=== PATIENT | female | born 1975 | race Two or more races ===

== ENCOUNTER 2019-01-08 21:14 | Inpatient (IN) | payer MEDICAID ==
[~2019-01-08] VITALS: Ht 157.5 cm; Wt 76.2 kg
[2019-01-09 03:15] LABS: Basophils # (auto) 0.1 uL; Basophils % (auto) 0.6 % (0.0-2.0); Eosinophils # (auto) 0.5 uL; Eosinophils % (auto) 4.5 % (0.0-7.0); Hematocrit 40.7 % (36.0-46.0); Hemoglobin 13.7 g/dL (12.2-16.2); Lymphocytes # (auto) 2.9 uL; Lymphocytes % (auto) 28.1 % (10.0-50.0); Mean Corpuscular Hemoglobin 30.4 pg (28.0-32.0); Mean Corpuscular Hgb Conc. 33.8 g/dL (32.0-36.0); Mean Corpuscular Volume 90.1 fL (80.0-100.0); Monocytes # (auto) 0.9 uL; Monocytes % (auto) 9.2 % (0.0-12.0); Neutrophils # (auto) 5.9 uL; Neutrophils % (auto) 57.6 % (37.0-80.0); Nucleated Red Blood Cells % 0.1 %; Platelet Count (auto) 307 10^3/uL (140-450); Red Blood Cells 4.51 10^6/uL (4.0-5.20); Red Cell Distribution Width 13.6 % (11.8-14.3); White Blood Cell 10.3 10^3/uL (4.4-10.8)
[2019-01-09 03:38] LABS: Albumin 3.5 g/dL (3.4-5.0); BUN/Creatinine Ratio 18.1; Potassium 3.5 mmol/L (3.5-5.1)
[2019-01-09 03:41] LABS: Bilirubin, Total 0.8 mg/dL (0.2-1.0); Total Protein 7.9 g/dL (6.4-8.2)
[2019-01-09 04:39] LABS: Urine Amorphous Crystal FEW /hpf (None Seen); Urine Bacteria FEW /hpf (None Seen); Urine Blood Negative /uL (Negative); Urine Specific Gravity 1.012 (1.001-1.035); Urine WBC <1 /hpf (0 - 5)
[2019-01-09] MEDS ORDERED: TAMSULOSIN HYDROCHLORIDE 0.4 MG CAP PO ONE (08:00)
[2019-01-09] MEDS ORDERED: ONDANSETRON HCL 4 MG/2 ML VIAL IV ONE (08:00)
[2019-01-09] MEDS ORDERED: KETOROLAC TROMETH 30 MG/ML 1ML VIAL IV ONE (08:00)
[2019-01-09] MEDS ORDERED: PROMETHAZINE HCL 25 MG/ML 1ML IV PRN (09:30)
[2019-01-09] MEDS ORDERED: traMADol HCL 50 MG TAB PO PRN (09:30)
[2019-01-09] MEDS ORDERED: KETOROLAC TROMETH 30 MG/ML 1ML VIAL IV PRN (09:30)
[2019-01-09] MEDS ORDERED: LORazepam 0.5 MG TAB PO PRN (09:30)
[2019-01-09] MEDS ORDERED: MORPHINE SULFATE 4 MG/ML SYR/VIAL IV PRN (09:30)
[2019-01-09] MEDS ORDERED: TEMAZEPAM 15 MG CAP PO PRN (09:30)
[2019-01-09] MEDS ORDERED: NITROGLYCERIN 0.4 MG SL TAB SL PRN (09:30)
[2019-01-09] MEDS: SODIUM CHLORIDE 0.9% 1,000 ML IV SCH ×2 (09:55→21:08)
[2019-01-09] MEDS: FAMOTIDINE 20 MG TAB PO SCH ×2 (10:25→21:07)
[2019-01-09 14:00] VITALS: BP 128/80
--- NOTE | 2019-01-09 14:00 | NUR ---
Telemetry admit from [facility] admitted to Telemetry unit after SBAR received. Patient oriented to Pilar Ring primary RN, unit, room, bed, and unit policies regarding patient care and visiting hours discussed with patient and daughter. Patient now on continuous telemetry monitoring, tele box #19 and telemetry reading on arrival to unit is SR, HR 93. Safety precautions in place including bed set to lowest position/locked, bedside rails up x2, call light within reach, instructed patient to call for assistance. Patient verbalized understanding. Will continue to monitor q 1hr and PRN.
[2019-01-09] MEDS: ACETAMINOPHEN 500 MG TAB PO PRN ×2 (15:12→21:07)
[2019-01-09] MEDS ORDERED: BENA20TA14 PO (16:38)
[2019-01-09] MEDS ORDERED: ATOR20TA PO (16:38)
[2019-01-09] MEDS ORDERED: CHOL20007 OR (16:38)
[2019-01-09] MEDS ORDERED: RANITAB30 PO (16:38)
--- NOTE | 2019-01-09 19:26 | NUR ---
ENDORSED CARE TO JAXON YIN.
[2019-01-09 22:00] VITALS: BP 130/78
[2019-01-10 05:00] VITALS: BP 120/66
[2019-01-10] MEDS: SODIUM CHLORIDE 0.9% 1,000 ML IV SCH ×3 (05:26→17:36)
--- NOTE | 2019-01-10 07:20 | NUR ---
OPENING NOTE ASSUMED CARE OF PT. PT IS LAYING ON BED, AWAKE, HOB SEMI-FOWLERS. A&O X4. ON ROOM AIR, O2 SATURATION 96%. NO SIGNS OF SOB/DISTRESS NOTED. PATIENT ON TELE #19, HR 85. SAFETY PRECAUTIONS IN PLACE INCLUDING, BED SET TO LOWEST POSITION/LOCKED. BEDSIDE RAILS UP X2. CALL LIGHT WITHIN REACH. INSTRUCTED PT TO CALL FOR ASSISTANCE. DISCUSSED POC WITH PT. WILL CONTINUE TO MONITOR Q 1HR AND PRN.
[2019-01-10 08:00] VITALS: BP 135/82
[2019-01-10] MEDS: FAMOTIDINE 20 MG TAB PO SCH ×2 (09:26→21:42)
[2019-01-10] MEDS: cefTRIAXone 1GM/50ML D5W 50 ML IV SCH ×2 (09:26→17:34)
[2019-01-10 12:00] VITALS: BP 134/94
[2019-01-10 16:00] VITALS: BP 138/83
--- NOTE | 2019-01-10 19:19 | NUR ---
ENDORSED CARE TO JAXON GLORIA.
--- NOTE | 2019-01-10 19:20 | NUR ---
Opening Shift Note Received report from Alannah Suresh and assumed care of patient, awake and alert. No S/S of distress/SOB or pain. Instructed patient to call for assist if needed and verbalized understanding. Will continue to monitor. Signed: 01/11/19 at 0450 by DIANN BARTLETT <Co-Signature Required> Co-Signed: 01/11/19 at 0450 by Kimberly Wiggins RN
[2019-01-10 21:30] VITALS: BP 145/90
[2019-01-10] MEDS: ACETAMINOPHEN 500 MG TAB PO PRN (21:42)
[2019-01-10 22:00] VITALS: BP 145/90
--- NOTE | 2019-01-10 22:00 | NUR ---
Called/paged BRIAN Bryant called regarding patient's home medication. Waiting for call back. Continue care. Signed: 01/11/19 at 0454 by DIANN BARTLETT SN <Co-Signature Required> Co-Signed: 01/11/19 at 0454 by Kimberly Wiggins RN
--- NOTE | 2019-01-10 22:09 | NUR ---
returned call BRIAN Bryant returned call, updated on patient status and reason for call, orders received. To administer patient's home medication Benazepril 10 mg PO BID. Continue care. Signed: 01/11/19 at 0453 by DIANN BARTLETT SN <Co-Signature Required> Co-Signed: 01/11/19 at 0453 by Kimberly Wiggins RN
[2019-01-10] MEDS: BENAZEPRIL HCL 10 MG TAB PO SCH (22:22)
[2019-01-11 05:00] VITALS: BP 109/64
[2019-01-11 08:00] VITALS: BP 145/90
--- NOTE | 2019-01-11 08:00 | NUR ---
ASSESSMENT NOTE PT IS ALERT ORIENTED X4, RESTING IN BED COMFORTABLY, NO DISTRESS NOTED, ABLE TO SELF REPOSITION AND VERBALIS HER NEEDS, AMBULATE NEEDED, CALL LIGHT WITHIN REACH.
[2019-01-11] MEDS: cefTRIAXone 1GM/50ML D5W 50 ML IV SCH (08:45)
[2019-01-11] MEDS: ACETAMINOPHEN 500 MG TAB PO PRN (08:45)
[2019-01-11] MEDS: BENAZEPRIL HCL 10 MG TAB PO SCH (08:46)
[2019-01-11] MEDS: FAMOTIDINE 20 MG TAB PO SCH (08:46)
[2019-01-11 09:00] VITALS: BP 121/78
--- NOTE | 2019-01-11 11:05 | NUR ---
DR SAUER AT BED SIDE WITH DISCHARGE HOME INSTRUCTION, PT VERBALIS UNDERSTANDING.
--- NOTE | 2019-01-11 11:30 | NUR ---
FAMILY PT DAUGHTER AT BED SIDE
--- NOTE | 2019-01-11 12:38 | NUR ---
Discharge instructions given as ordered. Encourage to follow up with PMD as instructed. All questions and concerns addressed. Patient verbalized understanding. Medication reconciliation form completed and copy given to patient. . IV removed with catheter intact, pressure dressing applied. Telemetry unit returned to ICU. Patient ambulated with her daughter out,refused wheelchair with all personal belongings, accompanied by staff and family member. No distress noted at time of departure.
[2019-01-11 12:54] VITALS: BP 130/83
== END 2019-01-11 12:40 | disposition home or self-care (01) | DRG 465 ==
LOC: ER 21:18 → TELE 01-09 09:29 → TELE-EAST 01-09 14:54
PROVIDERS: ADMIT Internal Medicine; ATTEND Internal Medicine
DX: N20.0 Calculus of kidney (principal); E11.65 Type 2 diabetes mellitus with hyperglycemia; I10 Essential (primary) hypertension; R73.9 Hyperglycemia, unspecified; Z87.442 Personal history of urinary calculi; Z82.49 Family history of ischemic heart disease and other diseases of the circulatory system; Z83.3 Family history of diabetes mellitus; Z90.49 Acquired absence of other specified parts of digestive tract
CPT/HCPCS: 36415; 74176; 80053; 81001; 81025; 82150; 83036; 83690; 85025; 87086; 94761; 96374; 96375; G0378; J0696; J1885; J2405